=== PATIENT | male | born 1955 | race Caucasian/White ===

== ENCOUNTER 2017-01-20 03:22 | Emergency (ER) | payer OTHER ==
[2017-01-20 03:37] VITALS: PULSE 0
--- NOTE | 2017-01-20 03:56 | EMERGENCY ROOM VISIT NOTE ---
History Report prepared by Scribe: Luz Hollis Under the Supervision of: Dr. Pallavi Best D.O. First contact with patient: 03:18 Chief Complaint: CARDIAC ARREST Stated Complaint: CARDIAC ARREST History of Present Illness The patient is a 63 year old male who presents to the Emergency Room via BLS/ ALS with complaints of cardiac arrest occurring today. He has a history of diabetes but had not been feeling badly. The patient had come home from work and was feeling fine. He came to bed and then went to go to the bathroom. He collapsed in the bathroom. The patient's found him with snoring respirations. She called 911. BLS administered AED shock. Patient was initially found in V-Fib and was shocked again by ALS. He then alternated between asystole and PEA. HPI is limited secondary to cardiac arrest. Additional history is obtained as per and EMS. Source of History: patient History Limited By: other () Onset: today Position: other (global) Quality: other (cardiac arrest) Review of Systems ROS is limited secondary to patient's status. Past Medical & Surgical Medical Problems: (1) Bee sting (2) Diabetes Family History Patient reports no known family medical history. Social History Marital Status: Housing Status: lives with family Occupation Status: employed Allergies Uncoded Allergies: NKA (Allergy, Unknown, 03/22/05) Physical Exam Vital Signs Date Time Temp Pulse Resp B/P (MAP) Pulse Ox O2 Delivery O2 Flow Rate FiO2 01/20/17 03:37 0 0 01/20/17 03:27 0 01/20/17 03:25 0 Physical Exam HEENT: Head - normocephalic and atraumatic Pupils are fixed and dilated. Nose - moist nasal mucosa without discharge. Mouth - Yousif LT-D airway in place. Neck: Supple; no nuchal rigidity Chest: MIKHAIL device in place. Abdomen: Soft, moderately distended. There are no palpable pulsatile masses or hepatosplenomegaly. There is no guarding, rigidity, or rebound noted. Extremities: No evidence of cyanosis, clubbing, or edema. Pulseless. Skin: warm and dry with good turgor and no rashes. Medical Decision & Procedures ED Course 0318: Past medical records reviewed. The patient was evaluated in room B01. A complete history and physical exam was performed. 0324: Time of . I discussed the patient's case with his . 1607: I discussed the patient's case with his family. Medical Decision The patient presents to the Emergency Room for cardiac arrest. The patient has no known cardiac history. He collapsed in the bath room and was found by his with snoring respirations. By the time EMS arrived, the patient was unresponsive and pulseless. The patient was to for related twice and then found to be in recurrent PEA and asystole. He received a total of 8 epinephrines. Patient never had return of spontaneous circulation. Impression Primary Impression: Cardiac arrest Scribe Attestation The scribe's documentation has been prepared under my direction and personally reviewed by me in its entirety. I confirm that the note above accurately reflects all work, treatment, procedures, and medical decision making performed by me. Departure Information Dispostion Patient Instructions [facility]
== END 2017-01-20 04:50 | disposition expired ==
LOC: EDBD 03:22 → C.EDB 03:23
DX: I46.9 Cardiac arrest, cause unspecified (principal); E11.9 Type 2 diabetes mellitus without complications